=== PATIENT | female | born 2000 | race Caucasian/White ===

== ENCOUNTER 2022-07-05 01:41 | Emergency (ER) | payer SELFPAY ==
--- NOTE | 2022-07-05 01:46 | NUR ---
Patient was called to be triaged but was not present. Hospital's secruity caleb saw patient getting in a car and left.
--- NOTE | 2022-07-05 02:10 | NUR ---
Patient was called to be triaged but was not present. PATIENT WAS NOT TRIAGED OR SEEN BY [facility].
== END 2022-07-05 02:11 | disposition left against medical advice (07) ==
LOC: ER 01:52
DX: Z53.21 Procedure and treatment not carried out due to patient leaving prior to being seen by health care provider (principal)